=== PATIENT | male | born 1950 | race Caucasian/White ===

== ENCOUNTER → 2016-09-02 | Outpatient (CLI) | payer MEDICARE, OTHER ==
[~2016-09-02] MED LIST: ESOM20CA PO; TADA5TAB2 PO; [UNRECOGNIZED DRUG - REMARK]; [UNRECOGNIZED DRUG - REMARK]
== END | disposition home or self-care (01) ==
LOC: RAD 13:12
PROVIDERS: ATTEND Physician Assistant Surgical
DX: S51.012A Laceration without foreign body of left elbow, initial encounter (principal); M19.022 Primary osteoarthritis, left elbow; M77.8 Other enthesopathies, not elsewhere classified; X58.XXXA Exposure to other specified factors, initial encounter; Y93.89 Activity, other specified; Y92.89 Other specified places as the place of occurrence of the external cause; Y99.8 Other external cause status